=== PATIENT | female | born 1950 | race Two or more races ===

== ENCOUNTER → 2017-07-18 | Emergency (ER) | payer OTHER ==
[~2017-07-18] VITALS: Ht 157.5 cm; Wt 68.0 kg
[~2017-07-18] MED LIST: ADVAIR 2501 DISK W/1 IH; CALAN SR 120MG120 MG PO; LANOXIN0.25 MG PO; ORPH100T PO; PENTOPAK400 MG PO; PREDNISONE10 MG PO; PROVENTIL3 ML/2.5 M IH; TRAMADOL HCL25 GM MC; ULTRACET PO; ZITHROMAX500 MG PO
== END | disposition left against medical advice (07) ==
LOC: ER 03:05
DX: Z53.20 Procedure and treatment not carried out because of patient's decision for unspecified reasons (principal)

== ENCOUNTER 2018-04-22 12:17 | Emergency (ER) | payer OTHER ==
[~2018-04-22] VITALS: Ht 154.9 cm; Wt 68.0 kg
[2018-04-22] MEDS ORDERED: COZAAR25 MG PO (12:50)
[2018-04-22] MEDS ORDERED: HYDROCHLOROTH12.5 M1 PO (12:50)
[2018-04-22] MEDS ORDERED: AMOX1TAB5 PO (12:51)
[2018-04-22] MEDS ORDERED: MEDROLPACK PO (15:10)
[2018-04-22] MEDS ORDERED: TUSSI PRES-B L120 M1 PO (15:10)
[2018-04-22] MEDS ORDERED: ZITHROMAX TRI-500 MG PO (15:10)
== END 2018-04-22 15:35 | disposition home or self-care (01) ==
LOC: ER 12:17
DX: J06.9 Acute upper respiratory infection, unspecified (principal)

== ENCOUNTER → 2018-06-29 | Emergency (ER) | payer OTHER ==
[~2018-06-29] VITALS: Ht 157.5 cm; Wt 68.0 kg
[~2018-06-29] MED LIST changes: +AMOX1TAB5 PO; +COZAAR25 MG PO; +HYDROCHLOROTH12.5 M1 PO; +MEDROLPACK PO; +TUSSI PRES-B L120 M1 PO; +ZITHROMAX TRI-500 MG PO
== END | disposition left against medical advice (07) ==
LOC: ER 01:14
DX: Z53.20 Procedure and treatment not carried out because of patient's decision for unspecified reasons (principal)

== ENCOUNTER 2024-10-22 18:48 | Emergency (ER) | payer OTHER ==
[~2024-10-22] VITALS: Ht 157.5 cm; Wt 67.1 kg
[~2024-10-22 18:48] MED LIST changes: +NORFLEX100MG PO
[2024-10-22] MEDS ORDERED: METFORMIN HCL500 M3 (19:13)
[2024-10-22] MEDS ORDERED: METHYLPREDNISOLONE SOD SUCC 40 MG VIAL IM ONE (19:30)
[2024-10-22] MEDS ORDERED: BENZONATATE 200 MG CAPSULE PO ONE (19:30)
[2024-10-22] MEDS ORDERED: LEVALBUTEROL HCL 1.25 MG/3 ML SOLUTION IH ONE (19:30)
[2024-10-22 20:42] LABS: BASO % 0.3 % (0.1-1.2); EOS # 0.10 (0.04-0.54); EOS % 0.8 % (0.7-7.0); LYMPH # 3.96 (1.18-3.74); LYMPH % 31.0 % (19.3-53.1); MEAN PLATELET VOLUME 9.80 fl (9.4-12.4); MONO # 0.96 (0.24-0.82); MONO % 7.5 % (4.7-12.5); NEUT # 7.59 (1.56-6.13); NEUT % 59.5 % (34.0-71.1); RED CELL DISTRIBUTION WIDTH 12.6 % (11.6-14.4)
[2024-10-22] MEDS ORDERED: CEFTRIAXONE SODIUM 1,000 MG VIAL IM ONE (20:45)
[2024-10-22 21:03] LABS: COVID-19 AG NEGATIVE (NEGATIVE)
[2024-10-22 21:13] LABS: ALT/SGPT 54.0 U/L (12-78); AST/SGOT 26.0 U/L (15-37); BILIRUBIN TOTAL 0.49 mg/dL (0.3-1.2); BUN CREA RATIO 14.0 (7.0-25.0); CREATININE SERUM 0.93 mg/dL (0.55-1.02); GFR 59.43; GLOBULINA 4.2 G/DL (2.4-3.5); GLUCOSE FASTING 127.0 mg/dL (65-100); OSMOLALITY SERUM 274.0 MOSM/KG (275-295)
[2024-10-22] MEDS ORDERED: SINGULAIR10 MG PO (22:42)
[2024-10-22] MEDS ORDERED: LEVALBUTER0.63 MG/3 IH (22:42)
[2024-10-22] MEDS ORDERED: PEPCID AC20 MG PO (22:42)
== END 2024-10-22 23:06 | disposition home or self-care (01) ==
LOC: ER 19:22
PROVIDERS: General Practice
DX: R05.8 Other specified cough (principal); R06.02 Shortness of breath; Z88.6 Allergy status to analgesic agent; Z20.822 Contact with and (suspected) exposure to COVID-19
CPT/HCPCS: 36415; 71046; 96365; 99282; J0696; J3490